=== PATIENT | female | born 1965 | race Caucasian/White ===

== ENCOUNTER 2023-07-10 08:45 | Oncology outpatient (recurring) (ONCR) | payer SELFPAY | END 2023-07-12 23:59 | disposition home or self-care (01) | LOC: ONCMED 08:46 | PROVIDERS: PCP Family Medicine; Referring Provider Nurse Practitioner Family; Visit Provider Internal Medicine Medical Oncology | DX: Z53.9 Procedure and treatment not carried out, unspecified reason (principal) ==

== ENCOUNTER → 2023-10-01 10:01 | Outpatient (BNVA) | payer MEDICAID, SELFPAY | PROVIDERS: PCP Family Medicine; Visit Provider Internal Medicine Cardiovascular Disease | DX: I48.91 Unspecified atrial fibrillation (principal); R00.2 Palpitations; R07.9 Chest pain, unspecified; I10 Essential (primary) hypertension; E03.9 Hypothyroidism, unspecified | CPT/HCPCS: 93005 ==

== ENCOUNTER 2023-10-15 08:36 | Outpatient (CLI) | payer MEDICAID, SELFPAY ==
--- NOTE | 2023-10-15 08:45 | USCV_ITS ---
Dee Dee Gaytan Age: 58 Gender: F : 1965 Exam Date: 10/15/2023 09:01 Ordering Phys: Barbara Diaz MD ([email or web address]) Technologist: Nilsa Cunningham Exam Location: [facility] [place] Indication: HTN, CP, palpitations BP: 148 / 80 HR: 69 Rhythm: Sinus Technical Quality: Adequate MEASUREMENTS (Male / Female) Normal Values 2D ECHO LV Diastolic Diameter PLAX 4.4 cm 4.2 - 5.9 / 3.9 - 5.3 cm LV Systolic Diameter PLAX 3.4 cm IVS Diastolic Thickness 1.3 cm 0.6 - 1.0 / 0.6 - 0.9 cm IVS Systolic Thickness 1.2 cm LVPW Diastolic Thickness 1.0 cm 0.6 - 1.0 / 0.6 - 0.9 cm LVPW Systolic Thickness 1.2 cm LVOT Diameter 2.0 cm LV Ejection Fraction 2D Teich 46.9 % LV Ejection Fraction MOD 2C 35.0 % LV Ejection Fraction 2C AL 34.4 % LA Diameter 2.9 cm LA Width 2.3 cm LA Height 4.8 cm RA Width 3.0 cm RA Height 4.3 cm Aorta at Sinotubular Diameter 3.0 cm IVC Diameter 2.0 cm M-MODE Aortic Annulus Diameter 2.6 cm LA Ao Ratio MM 1.1 MV E Point Septal Separation 1.3 cm DOPPLER AV Peak Velocity 165.0 cm/s LVOT Peak Velocity 109.0 cm/s AV Area Cont Eq vti 2.1 cm squared AV Area Cont Eq pk 2.2 cm squared MV Peak Velocity 110.0 cm/s MV Area PHT 3.9 cm squared Mitral E to A Ratio 0.8 MV E' Velocity 43.0 cm/s Mitral E to MV E' Ratio 10.2 Mitral E to LV E' Lateral Ratio 9.3 Mitral E to LV E' Septal Ratio 11.4 TR Peak Velocity 106.7 cm/s TR Peak Gradient 4.6 mmHg Right Atrial Pressure 5.0 mmHg Pulmonary Artery Systolic Pressu 9.6 mmHg PV Peak Velocity 77.0 cm/s RV Acceleration Time 0.2 s RV Ejection Time 0.3 s RV AcT/ET 0.5 FINDINGS Left Ventricle Normal left ventricular size, systolic function and wall thickness, with no regional wall motion abnormalities. Left ventricular ejection fraction is estimated at 55-60 %. Normal diastolic function. Right Ventricle Normal right ventricular size and systolic function. Right ventricular systolic pressure 9.6 mmHg. Right Atrium Normal right atrial size. Left Atrium Normal left atrial size. Mitral Valve Structurally normal mitral valve. No mitral valve stenosis. Trace mitral valve regurgitation. Aortic Valve Structurally normal trileaflet aortic valve. No aortic valve stenosis. Trace aortic valve regurgitation. Tricuspid Valve Structurally normal tricuspid valve. Trace tricuspid valve regurgitation. Pulmonic Valve Structurally normal pulmonic valve. No pulmonary valve stenosis. No pulmonary valve regurgitation. Pericardium No pericardial effusion. Aorta Normal size aortic root and proximal ascending aorta. IVC Normal IVC dimension with >50% respiratory change of the inferior vena cava. CONCLUSIONS 1. Normal left ventricular size, systolic function and wall thickness, with no regional wall motion abnormalities. Left ventricular ejection fraction is estimated at 55-60 %. Normal diastolic function. 2. Trace aortic valve regurgitation. 3. No prior similar studies to compare. Barbara Diaz MD (Electronically Signed) Final Date: 18 October 2023 22:55 S
== END 2023-10-15 08:37 | disposition home or self-care (01) ==
LOC: RAD 08:36
PROVIDERS: PCP Family Medicine; Visit Provider Internal Medicine Cardiovascular Disease
DX: I10 Essential (primary) hypertension (principal); R00.2 Palpitations; R07.9 Chest pain, unspecified
CPT/HCPCS: 93306

== ENCOUNTER → 2023-10-18 09:35 | Outpatient (BNVA) | payer MEDICAID, SELFPAY | PROVIDERS: PCP Family Medicine; Referring Provider Internal Medicine Medical Oncology; Visit Provider Internal Medicine | DX: E03.9 Hypothyroidism, unspecified (principal); Z85.850 Personal history of malignant neoplasm of thyroid; I10 Essential (primary) hypertension; R00.2 Palpitations | CPT/HCPCS: 36415; 84432; 84439; 84443; 86800 ==

== ENCOUNTER 2023-11-06 12:05 | Outpatient (CLI) | payer MEDICAID, SELFPAY ==
--- NOTE | 2023-11-06 12:15 | USR_ITS ---
PROCEDURE INFORMATION: Exam: US Soft Tissue Head and Neck, Thyroid Exam date and time: 11/06/2023 12:37 PM Age: 58 years old Clinical indication: Condition or disease; Cancer; Thyroid; Additional info: HX of thyroid cancer TECHNIQUE: Imaging protocol: Real-time ultrasound scan of the neck with image documentation. Exam focused on the thyroid. COMPARISON: No relevant prior studies available. FINDINGS: Right thyroid lobe: Surgically removed. Left thyroid lobe: Surgically removed. Isthmus: Surgically removed. Other findings: Status post thyroidectomy. No residual/recurrent thyroid tumor visualized. US/US thyroid [id number] IMPRESSION: Status post thyroidectomy without evidence for residual/recurrent thyroid tumor.
== END 2023-11-06 12:06 | disposition home or self-care (01) ==
LOC: RAD 12:05
PROVIDERS: PCP Family Medicine; Visit Provider Internal Medicine
DX: E89.0 Postprocedural hypothyroidism (principal); Z85.850 Personal history of malignant neoplasm of thyroid
CPT/HCPCS: 76536

== ENCOUNTER 2024-02-05 08:06 | Outpatient (CLI) | payer MEDICAID, SELFPAY ==
--- NOTE | 2024-02-05 08:30 | FL_ITS ---
WS: [id number] Exam: FL barium swallow [id number] Date/Time of Exam: 02/05/2024 8:15 AM Reason For Exam: Fluoroscopy time: 3min [id number] minutes # of spot films: Oropharyngeal phase of swallowing was normal. The cervical esophagus is widely patent. No esophageal mass or stricture identified. There are 2 moderate-sized traction diverticuli of the lower esophagus along the RIGHT margin. These both measure in the range of 1.5 cm in greatest diameter. No hiatal her taylor noted. No gastroesophageal reflux. Normal esophageal motility. The esophagus was not displaced. IMPRESSION: 1. No indication of esophageal mass, stricture, or motility disorder. 2. 2 traction diverticuli of the lower esophagus as described above.
== END 2024-02-05 08:07 | disposition home or self-care (01) ==
LOC: RAD 08:07
PROVIDERS: PCP Nurse Practitioner Family; Visit Provider Otolaryngology
DX: R13.14 Dysphagia, pharyngoesophageal phase (principal)
CPT/HCPCS: 74220

== ENCOUNTER 2024-03-07 11:16 | Outpatient (CLI) | payer MEDICAID, SELFPAY ==
[2024-03-07 12:09] LABS: Free T4 Free Thyroxine 1.77 ng/dL (0.82-1.77); Thyroid Stimulating Hormone 0.02 uIU/mL (0.27-4.20)
[2024-03-10 09:20] LABS: Thyroglobulin AB <1 IU/mL (< or = 1)
[2024-03-13 00:10] LABS: Thyroglobulin Level <0.4 ng/mL
== END 2024-03-07 11:17 | disposition home or self-care (01) ==
LOC: LAB 11:17
PROVIDERS: PCP Nurse Practitioner Family; Visit Provider Internal Medicine
DX: E03.9 Hypothyroidism, unspecified (principal); Z85.850 Personal history of malignant neoplasm of thyroid
CPT/HCPCS: 84432; 84439; 84443; 86800

== ENCOUNTER 2025-02-09 09:26 | Outpatient (CLI) | payer MEDICAID, SELFPAY ==
[2025-02-09 10:57] LABS: Free T4 Free Thyroxine 2.15 ng/dL (0.82-1.77); Thyroid Stimulating Hormone 0.01 uIU/mL (0.27-4.20)
== END 2025-02-09 09:27 | disposition home or self-care (01) ==
PROVIDERS: PCP Nurse Practitioner Family; Visit Provider Internal Medicine
DX: E03.9 Hypothyroidism, unspecified (principal)
CPT/HCPCS: 36415; 84432; 84439; 84443; 86800

== ENCOUNTER 2025-03-11 12:05 | Outpatient (CLI) | payer MEDICAID, SELFPAY ==
--- NOTE | 2025-03-11 12:07 | XR_ITS ---
WS: [id number] PA and lateral chest, additional inspiration and expiration views were obtained, 03/11/2025 Clinical Data: see below Comparison: None. Findings: No nodules, masses or effusions are seen. The heart is normal. The pulmonary vascularity is not increased. No pneumonia or pneumothorax is seen. XR/XR chest 3V [id number] Impression: Negative chest.
--- NOTE | 2025-03-11 12:15 | US_ITS ---
WS: [id number] THYROID ULTRASOUND HISTORY: Patient is status post thyroidectomy. COMPARISON: 11/06/2023 Status post complete thyroidectomy. Ultrasound along the thyroid beds demonstrates no recurrent mass. No pathologically enlarged lymph nodes. Submandibular glands are normal. US/US thyroid [id number] IMPRESSION: Complete thyroidectomy without recurrence or pathological adenopathy.
[2025-03-11 12:45] LABS: Free T4 Free Thyroxine 1.86 ng/dL (0.82-1.77); Thyroid Stimulating Hormone 0.02 uIU/mL (0.27-4.20)
== END 2025-03-11 12:06 | disposition home or self-care (01) ==
PROVIDERS: PCP Nurse Practitioner Family; Visit Provider Internal Medicine
DX: E03.9 Hypothyroidism, unspecified (principal); Z85.850 Personal history of malignant neoplasm of thyroid; I10 Essential (primary) hypertension; R00.2 Palpitations; J98.4 Other disorders of lung; Z98.890 Other specified postprocedural states
CPT/HCPCS: 36415; 71047; 76536; 84439; 84443

== ENCOUNTER 2025-08-10 08:13 | Outpatient (CLI) | payer MEDICAID, SELFPAY ==
[2025-08-10 09:17] LABS: Free T4 Free Thyroxine 1.50 ng/dL (0.82-1.77); Thyroid Stimulating Hormone 0.30 uIU/mL (0.27-4.20)
== END 2025-08-10 08:14 | disposition home or self-care (01) ==
LOC: LAB 08:15
PROVIDERS: PCP Nurse Practitioner Family; Visit Provider Internal Medicine
DX: E03.9 Hypothyroidism, unspecified (principal)
CPT/HCPCS: 36415; 84439; 84443